=== PATIENT | male | born 1945 | race Caucasian/White ===

== ENCOUNTER → 2018-12-04 10:05 | Outpatient (CLI) | payer MEDICARE, OTHER, SELFPAY ==
[2018-12-04 10:57] LABS: BUN Creatinine Ratio 13.6 (6-22); Blood Urea Nitrogen 15 mg/dL (9-20); Calcium 9.5 mg/dL (8.4-10.2); Carbon Dioxide 30 mmol/L (22-32); Chloride 99 mmol/L (98-107); Estimated Glomerular Filt Rate > 60.0 mL/min (>60); Glucose 93 mg/dL (80-110); HEMOLYSIS < 15 (0-50); Potassium 4.4 mmol/L (3.4-5.1); Sodium 137 mmol/L (137-145)
[2018-12-04 13:13] LABS: Vitamin D 25 Hydroxy (D3) 74.4 ng/mL (30.0-100.0)
== END ==
PROVIDERS: PCP Student in an Organized Health Care Education/Training Program; Visit Provider Student in an Organized Health Care Education/Training Program
DX: I10 Essential (primary) hypertension (principal); E55.9 Vitamin D deficiency, unspecified
CPT/HCPCS: 36415; 80048; 82306

== ENCOUNTER → 2020-02-13 07:07 | Outpatient (CLI) | payer MEDICARE, OTHER, SELFPAY ==
[2020-02-13 09:53] LABS: Prostate Specific Antigen 0.121 ng/mL (0.10-4.00)
== END ==
PROVIDERS: PCP Student in an Organized Health Care Education/Training Program; Referring Provider Student in an Organized Health Care Education/Training Program; Visit Provider Urology
DX: N40.0 Benign prostatic hyperplasia without lower urinary tract symptoms (principal)
CPT/HCPCS: 36415; 84153

== ENCOUNTER → 2020-02-25 13:08 | Outpatient (CLI) | payer MEDICARE, OTHER, SELFPAY ==
[2020-02-25 14:14] LABS: BUN Creatinine Ratio 16.2 (6-22); Blood Urea Nitrogen 17 mg/dL (9-20); Calcium 9.7 mg/dL (8.4-10.2); Carbon Dioxide 27 mmol/L (22-32); Chloride 99 mmol/L (98-107); Estimated Glomerular Filt Rate > 60.0 mL/min (>60); Glucose 124 mg/dL (80-110); HEMOLYSIS < 15 (0-50); Potassium 4.3 mmol/L (3.4-5.1); Sodium 134 mmol/L (137-145)
== END ==
PROVIDERS: PCP Student in an Organized Health Care Education/Training Program; Referring Provider Student in an Organized Health Care Education/Training Program; Visit Provider Student in an Organized Health Care Education/Training Program
DX: I10 Essential (primary) hypertension (principal)
CPT/HCPCS: 36415; 80048

== ENCOUNTER → 2021-01-27 06:37 | Outpatient (CLI) | payer MEDICARE, OTHER, SELFPAY ==
--- NOTE | 2021-01-27 06:38 | DI.CT.S_ITS ---
PROCEDURE: CT PEL WO CON INDICATIONS: Pelvic mass TECHNIQUE: Non-contrast, 5 mm thick sections acquired from the iliac crests to the symphysis. 5 mm coronal and sagittal reformats were then performed. For radiation dose reduction, the following was used: automated exposure control, adjustment of mA and/or kV according to patient size. COMPARISON: [facility], CT, KIDNEY/ URETER/BLADDER, 09/04/2013, 14:28. [facility], CR, XR ABDOMEN 1 VIEW, 12/13/2018, 9:36. [facility], CR, XR ABDOMEN 1 VIEW, 04/02/2020, 9:24. FINDINGS: Image quality: Excellent. Peritoneum and bowel: Bowel loops demonstrate normal wall thickness and caliber. There is a large amount of stool in colon. No free fluid or air. Genitourinary: There is a 5 x 12 mm stone in the inferior pole of the left kidney. Kidneys are partially visualized. No hydronephrosis. Bladder wall appears mildly thickened concentrically. Enlarged prostate. Nodes and vessels: No iliac, pelvic, or inguinal adenopathy by size criteria. Iliac vessels demonstrate normal size. Bones: No suspicious bony lesions. Pelvic ring and hip joints appear intact. Miscellaneous: Enlargement of the right inguinal ring with an elliptical shaped fluid collection measuring 2.4 x 2.8 x 8.0 cm suggesting a hydrocele. No inguinal adenopathy. Mild focal bulge in the area of interest deep to the skin marker. IMPRESSION: 1. Mild focal bulge in the area of interest deep to the skin marker. 2. Enlargement of the right inguinal ring with an elliptical shaped fluid collection measuring 2.4 x 2.8 x 8.0 cm, probably related to right scrotal hydrocele. Recommend a scrotal ultrasound for further evaluation. 3. A 5 x 12 mm nonobstructive left kidney stone. 4. Enlarged prostate. Bladder wall appears mild concentrically thickened, suggesting mild bladder outlet obstruction. Dictated by: Matilde Stephens M.D. on 01/27/2021 at 10:18 Approved by: Matilde Stephens M.D. on 01/27/2021 at 12:36
== END ==
PROVIDERS: PCP Student in an Organized Health Care Education/Training Program; Referring Provider Student in an Organized Health Care Education/Training Program; Visit Provider Student in an Organized Health Care Education/Training Program
DX: R19.00 Intra-abdominal and pelvic swelling, mass and lump, unspecified site (principal); N20.0 Calculus of kidney; N40.0 Benign prostatic hyperplasia without lower urinary tract symptoms
CPT/HCPCS: 72192

== ENCOUNTER → 2021-01-31 07:08 | Outpatient (CLI) | payer MEDICARE, OTHER, SELFPAY ==
--- NOTE | 2021-01-31 07:09 | DI.US.S_ITS ---
PROCEDURE: US SCROTUM INDICATIONS: FLUID WITHIN INGUINAL CANAL TECHNIQUE: Real-time scanning was performed of the scrotum and testicles, with image documentation. Color and pulse Doppler interrogation was performed of both testicles. COMPARISON: [facility], CT, CT PEL WO CON, 01/27/2021, 7:03. FINDINGS: Right: Testicle is normal in size at 4.2 x 2.5 x 1.8 cm, and homogenous in echotexture. Epididymis is normal in overall size and morphology. No hydrocele or varicoceles. Overlying scrotal skin is normal in thickness. Left: Testicle is normal in size at 4.0 x 2.4 x 1.8 cm, and homogeneous in echotexture. Epididymis is normal in overall size and morphology. No hydrocele or varicoceles. Overlying scrotal skin is normal in thickness. Doppler: Color and pulse Doppler demonstrate normal and symmetric arterial flow in both testicles. Fluid noted in the right groin compatible with patent processus vaginalis. IMPRESSION: 1. Testicle sonographically normal. 2. Patent right processus vaginalis. Dictated by: Adri Tripp MD, PhD on 01/31/2021 at 16:28 Approved by: Adri Tripp MD, PhD on 01/31/2021 at 16:35
[2021-01-31 08:23] LABS: BUN Creatinine Ratio 14.7 (6-22); Blood Urea Nitrogen 15 mg/dL (9-20); Calcium 9.4 mg/dL (8.4-10.2); Carbon Dioxide 29 mmol/L (22-32); Chloride 100 mmol/L (98-107); Estimated Glomerular Filt Rate > 60.0 mL/min (>60); Glucose 102 mg/dL (80-110); HEMOLYSIS < 15 (0-50); Potassium 5.2 mmol/L (3.4-5.1); Sodium 135 mmol/L (137-145)
== END ==
PROVIDERS: PCP Student in an Organized Health Care Education/Training Program; Referring Provider Student in an Organized Health Care Education/Training Program; Visit Provider Student in an Organized Health Care Education/Training Program
DX: N43.3 Hydrocele, unspecified (principal); I10 Essential (primary) hypertension
CPT/HCPCS: 36415; 76870; 80048

== ENCOUNTER → 2021-05-06 09:35 | Outpatient (CLI) | payer MEDICARE, OTHER, SELFPAY ==
[2021-05-06 11:02] LABS: COVID19 -Nasal RAPID Negative (Negative)
== END ==
PROVIDERS: PCP Student in an Organized Health Care Education/Training Program; Visit Provider Surgery
DX: Z01.812 Encounter for preprocedural laboratory examination (principal); Z20.822 Contact with and (suspected) exposure to COVID-19
CPT/HCPCS: 87635; C9803

== ENCOUNTER 2021-05-09 07:22 | Day surgery (SDC) | payer MEDICARE, OTHER, SELFPAY ==
[2021-05-09] VITALS (7 sets, daily range): BP systolic 93–158; BP diastolic 51–79; PULSE 49–76; RESP 8–16; TEMP 36.2–36.7; O2SAT 96–99; BMI 45.6
[2021-05-09] MEDS: LACTATED RINGERS 1,000 ML 42 ML IV (08:02)
--- NOTE | 2021-05-09 08:28 | PM.HP.1 ---
History of Present Illness History of Present Illness Date Patient Seen: 05/09/21 Time Patient Seen: 08:28 Chief complaint: SDC Narrative: The patient presents for colorectal sreening. Previous colonoscopy 2009. No personal or family history of colon cancer. On further history denies any recent gastrointestinal symptoms. No nausea, vomiting, abdominal pain, loss of appetite, unexplained weight loss, change in bowel habits, diarrhea, constipation, melena, hematochezia, or bright red blood per rectum. Patient History Medical History Hyperlipidemia Hypertension Hypothyroidism Surgical History History of cystoscopy (10/10/13) Family & Social History Family History Father Myocardial infarction Mother Stroke Social History: household members spouse Tobacco & Substance use: Smoking Status Never smoker alcohol intake never Substance Use Type does not use Meds Home Medications and Allergies Home Medications Medication Instructions Recorded Confirmed Type tamsulosin 0.4 mg capsule (Flomax) 0.4 mg PO QDAY #90 cap 05/29/17 03/28/21 Rx finasteride 5 mg tablet 5 mg PO DAILY 12/04/18 05/09/21 History lisinopril 20 mg tablet See Rx Instructions .ROUTE 02/02/21 05/09/21 Rx .COMPLEX #90 tab atorvastatin 10 mg tablet (Lipitor) 10 mg PO Q OTHER DAY #45 tab 03/25/21 05/09/21 Rx sodium,potassium,mag sulfates 17.5 See Rx Instructions PO .COMPLEX 03/29/21 05/09/21 Rx gram-3.13 gram-1.6 gram oral soln #354 ml (Suprep Bowel Prep Kit) Allergies Allergy/AdvReac Type Severity Reaction Status Date / Time diclofenac [DICLOFENAC] Allergy Intermediate SWELLING. Verified 05/09/21 07:44 VOLTAREN GEL CAUSED SEVERE IRRITATION cod liver oil [COD LIVER OIL] Allergy Unknown HIVES Verified 05/09/21 07:44 (PATIENT WAS A CHILD AT THE TIME) Sulfa (Sulfonamide Allergy Unknown FAMILY Verified 05/09/21 07:44 Antibiotics) HISTORY [SULFA (SULFONAMIDE ANTIBIOTICS)] Review of Systems Review of Systems ROS: Yes All systems reviewed with the patient and are negative except as otherwise documented Exam Vital Signs (past 8 hours): - 05/09/21 07:48 Temperature 97.5 F L Pulse Rate 76 Respiratory Rate 16 Blood Pressure 158/79 H Pulse Oximetry 97 Oxygen Delivery Method Room Air Narrative Exam Narrative: Constitutional-he is oriented to person, place and time. No apparent distress Cardiovascular- regular rate, no peripheral edema Pulmonary-unlabored respiratory effort, no audible wheezing Abdominal-soft, non-tender, non-distended Musculoskeletal-no cyanosis or clubbing Neurological-nonfocal, normal strength throughout, normal gait. Skin-warm and dry Assessment & Plan Assessment & Plan narrative: The patient requires colorectal screening and colonoscopy is recommended. Technical details were discussed. Risks, benefits, alternatives explained. Risks including but not limited to myocardial infarction, aspiration, bleeding, pain, missed lesion, incomplete examination, need for further radiographic studies, colonic perforation, and need for major abdominal surgery were discussed. All questions were answered to their satisfaction, and they are in agreement with this plan.
[2021-05-09] MEDS: MIDAZOLAM 5 MG/5 ML VIAL IV (08:33)
[2021-05-09] MEDS: fentaNYL 250 MCG/5 ML INJ IV (08:33)
--- NOTE | 2021-05-09 09:01 | PM.OP.ENDO ---
Operative Date/Time/Diagnoses Date of procedure: 05/09/21 Time of procedure: 09:01 Pre-op diagnosis: screening Post-op diagnosis: same Procedure & Clinicians Study performed: colonoscopy Same procedure as scheduled: Yes Indications: screening Surgeon: Edison Márquez Procedure Notes Procedure in detail: Medications: Conscious sedation using 4mg IV midazolam and 100mcg IV of fentanyl The history and physical was performed/updated and the patient is ASA class is 2. The procedure was discussed in detail with the patient. Potential risks complications including infection, bleeding, missed diagnosis, perforation, need for surgery, and were explained. Their questions were answered and informed consent was obtained. Patient was brought to the procedure room and placed standard monitoring equipment. The patient's vital signs were monitored continuously throughout the entire procedure. Prior to starting time-out was performed. The patient was placed in the left lateral recumbent position. Procedural sedation was administered. Examination began with a thorough inspection of the perianal area there was no evidence of fissures, fistulae, external hemorrhoids or cutaneous malignancy. The colonoscopy scope was then placed into the anal canal and was advanced to the cecum, which was identified by the ileocecal valve, the appendiceal orifice and the confluence of the taenia. The scope was then slowly withdrawn examining colon thoroughly in all directions, irrigating it of any residual stool. FINDINGS 1. No masses or polyps 2. Sigmoid diverticulosis The patient tolerated the procedure well. They will be discharged once criteria are met. The prep was of good/excellent quality. The withdrawl time was 6 minutes. The sedation time was 26 minutes. Specimen(s): none sent Complications: none Impression: Normal colonoscopy Post-procedure Plan for aftercare: No need for further colonoscopy Disposition: same day surgery
== END 2021-05-09 09:52 | disposition home or self-care (01) ==
PROVIDERS: PCP Student in an Organized Health Care Education/Training Program; Referring Provider Surgery; Visit Provider Surgery
PROC: 0DJD8ZZ Inspection of Lower Intestinal Tract, Via Natural or Artificial Opening Endoscopic (ICD-10-PCS; CPT 45378; principal; 2021-05-09 08:30)
DX: Z12.11 Encounter for screening for malignant neoplasm of colon (principal); E78.5 Hyperlipidemia, unspecified; I10 Essential (primary) hypertension; E03.9 Hypothyroidism, unspecified; K57.30 Diverticulosis of large intestine without perforation or abscess without bleeding
CPT/HCPCS: G0121; 99152; J2250; J3010

== ENCOUNTER → 2022-03-09 10:47 | Outpatient (CLI) | payer MEDICARE, OTHER, SELFPAY ==
[2022-03-09 11:52] LABS: Alanine Aminotransferase 22 IU/L (<50); Albumin 4.5 g/dL (3.5-5.0); Albumin Globulin Ratio 1.8 (1.0-2.8); Alkaline Phosphatase 62 U/L (38-126); Aspartate Aminotransferase 33 IU/L (17-59); BUN Creatinine Ratio 16.4 (6-22); Bilirubin Total 1.3 mg/dL (0.2-1.3); Blood Urea Nitrogen 18 mg/dL (9-20); Calcium 9.1 mg/dL (8.4-10.2); Carbon Dioxide 29 mmol/L (22-32); Chloride 100 mmol/L (98-107); Cholesterol 139 mg/dL (140-199); Estimated Glomerular Filt Rate > 60 mL/min (>60); Globulin 2.5 g/dL (1.7-4.1); Glucose 94 mg/dL (80-110); HDL Cholesterol 67 mg/dL (40-60); HEMOLYSIS < 15 (0-50); LDL Cholesterol Calculated 60 mg/dL (<100); Potassium 4.8 mmol/L (3.4-5.1); Sodium 133 mmol/L (137-145); Triglycerides 59 mg/dL (35-150)
[2022-03-09 12:11] LABS: Prostate Specific Antigen 0.222 ng/mL (0.10-4.00)
== END ==
PROVIDERS: Urology; PCP Student in an Organized Health Care Education/Training Program; Referring Provider Student in an Organized Health Care Education/Training Program; Visit Provider Student in an Organized Health Care Education/Training Program
DX: E78.00 Pure hypercholesterolemia, unspecified (principal); Z12.5 Encounter for screening for malignant neoplasm of prostate; I10 Essential (primary) hypertension
CPT/HCPCS: 36415; 80053; 80061; 84153; G0103

== ENCOUNTER → 2022-05-10 06:56 | Outpatient (CLI) | payer MEDICARE, OTHER, SELFPAY ==
--- NOTE | 2022-05-10 | DI.RAD.S_ITS ---
PROCEDURE: XR ABDOMEN 1V INDICATIONS: Calculus of kidney TECHNIQUE: One view of the abdomen acquired. COMPARISON: [facility], CR, XR ABDOMEN 1 VIEW, 04/02/2020, 9:24. FINDINGS: Surgical changes and devices: None. Bowel: Scattered small bowel and colonic gas. No dilated loops of bowel seen. Prominent stool in the colon. Soft tissues: Left kidney stone or stones measuring 1.1 cm projecting at the inferior pole. Left kidney superior pole calculus measuring at 0.3 cm. The stones are unchanged since 2019. Phlebolith in the right pelvis is also unchanged. No suspicious abdominal calcifications. Visualized solid organ contours appear normal in size. Bones: No suspicious bony lesions. IMPRESSION: Stable nonobstructing left kidney stones. Prominent stool in the colon. If clinically indicated consider CT KUB for further evaluation. Dictated by: Surinder Rivera M.D. on 05/10/2022 at 9:40 Approved by: Surinder Rivera M.D. on 05/10/2022 at 9:42
== END ==
PROVIDERS: PCP Student in an Organized Health Care Education/Training Program; Referring Provider Urology; Visit Provider Urology
DX: N20.0 Calculus of kidney (principal)
CPT/HCPCS: 74018

== ENCOUNTER → 2023-02-15 06:56 | Outpatient (CLI) | payer MEDICARE, OTHER, SELFPAY ==
--- NOTE | 2023-02-15 06:58 | DI.RAD.S_ITS ---
PROCEDURE: XR KUB INDICATIONS: BPH with history of kidney stones TECHNIQUE: One view of the abdomen acquired. COMPARISON: [facility], , KUB XRAY (1 VIEW ABDOMEN), 09/20/2017, 8:38. FINDINGS: Surgical changes and devices: None. Bowel: Bowel gas pattern is normal. Soft tissues: No change in left renal calcifications measuring 8 mm and 4 mm. Visualized solid organ contours appear normal in size. Bones: No suspicious bony lesions. IMPRESSION: No change in left renal calcifications. Dictated by: Fermin Ventura M.D. on 02/15/2023 at 10:36 Approved by: Fermin Ventura M.D. on 02/15/2023 at 10:37
== END ==
PROVIDERS: Referring Provider Specialist; Visit Provider Specialist
DX: N40.1 Benign prostatic hyperplasia with lower urinary tract symptoms (principal); N20.0 Calculus of kidney
CPT/HCPCS: 36415; 74018; 84153

== ENCOUNTER → 2023-04-16 06:49 | Outpatient (CLI) | payer MEDICARE, OTHER, SELFPAY ==
--- NOTE | 2023-04-16 | DI.US.S_ITS ---
LIMITED ULTRASOUND OF LEFT BREAST AND AXILLA: 04/16/2023 CLINICAL: Palpable left breast lump. No prior exams were available for comparison. Color flow ultrasound of the left breast axilla was performed on the areas of interest. Narayan scale images of the real-time examination were reviewed. There is a 7.4 cm x 5.1 cm x 0.9 cm isoechoic mass in the left axillary tail which corresponds as palpated. No increased vascularity. No left axillary adenopathy. 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 Please note, a lipoma cannot be differentiated from the very rare liposarcoma by ultrasound imaging. Please correlate with clinical exam findings and history of rapid interval growth. Clinical follow-up recommended. Electronically Signed By: Mariaa archibald/:04/16/2023 12:37:30 letter sent: Clinical Evaluation Ultrasound BI-RADS: 2 Benign
== END ==
PROVIDERS: PCP Pediatrics; Referring Provider Pediatrics; Visit Provider Pediatrics
DX: N63.32 Unspecified lump in axillary tail of the left breast (principal)
CPT/HCPCS: 76642

== ENCOUNTER → 2023-09-20 09:52 | Outpatient (CLI) | payer MEDICARE, OTHER, SELFPAY ==
[2023-09-20 10:22] LABS: Hemoglobin 14.4 g/dL (13.5-17.5); Mean Corpuscular HGB Conc 34.2 % (30-36); Mean Corpuscular Hemoglobin 33.6 PG (26-34); Platelet Count 170 X10^3/uL (150-400); Red Blood Cell Count 4.29 X10^6/uL (4.5-5.9); Red Cell Distribution Width 13.5 % (11.6-14.8); White Blood Cell Count 4.3 X10^3/uL (4.5-11.0)
[2023-09-20 10:58] LABS: Alanine Aminotransferase 23 IU/L (<50); Albumin 4.4 g/dL (3.5-5.0); Albumin Globulin Ratio 1.5 (1.0-2.8); Alkaline Phosphatase 65 U/L (38-126); Aspartate Aminotransferase 33 IU/L (17-59); BUN Creatinine Ratio 17.3 (6-22); Bilirubin Total 1.5 mg/dL (0.2-1.3); Blood Urea Nitrogen 19 mg/dL (9-20); Calcium 9.7 mg/dL (8.4-10.2); Carbon Dioxide 29 mmol/L (22-32); Chloride 94 mmol/L (98-107); Cholesterol 151 mg/dL (140-199); Estimated Glomerular Filt Rate > 60 mL/min (>60); Globulin 2.9 g/dL (1.7-4.1); Glucose 100 mg/dL (80-110); HDL Cholesterol 82 mg/dL (40-60); HEMOLYSIS < 15 (0-50); LDL Cholesterol Calculated 56 mg/dL (<100); Potassium 4.2 mmol/L (3.4-5.1); Sodium 132 mmol/L (137-145); Total Protein 7.3 g/dL (6.3-8.2); Triglycerides 65 mg/dL (35-150)
[2023-09-20 11:41] LABS: TSH w/ Reflex to FT4 7.94 uIU/mL (0.47-4.68)
[2023-09-20 12:20] LABS: Free T4, Direct Thyroxine 0.67 ng/dL (0.78-2.19)
== END ==
LOC: LAB 09:54
PROVIDERS: PCP Internal Medicine; Referring Provider Internal Medicine; Visit Provider Internal Medicine
DX: E78.2 Mixed hyperlipidemia (principal); I10 Essential (primary) hypertension
CPT/HCPCS: 36415; 80053; 80061; 84439; 84443; 85027

== ENCOUNTER → 2024-03-06 08:27 | Outpatient (CLI) | payer MEDICARE, OTHER, SELFPAY ==
--- NOTE | 2024-03-06 08:32 | DI.RAD.S_ITS ---
PROCEDURE: XR KUB INDICATIONS: Kidney Stones TECHNIQUE: One view of the abdomen acquired. COMPARISON: [facility], CR, XR KUB, 02/15/2023, 7:19. [facility], CR, KUB XRAY (1 VIEW ABDOMEN), 09/20/2017, 8:38. FINDINGS: Surgical changes and devices: None. Bowel: Bowel gas pattern is normal. Soft tissues: No suspicious abdominal calcifications. Visualized solid organ contours appear normal in size. 1.2 x 0.4 cm stone projecting over the inferior calyx of the left kidney. Bones: No suspicious bony lesions. IMPRESSION: Stable 1.2 x 0.4 cm stone projecting over the inferior calyx of the left kidney. Dictated by: Emmett Friedman M.D. on 03/06/2024 at 10:15 Approved by: Emmett Friedman M.D. on 03/06/2024 at 10:16
== END ==
PROVIDERS: PCP Internal Medicine; Referring Provider Specialist; Visit Provider Specialist
DX: N40.1 Benign prostatic hyperplasia with lower urinary tract symptoms (principal); N13.8 Other obstructive and reflux uropathy; N20.0 Calculus of kidney
CPT/HCPCS: 51798; 74018; 81002; 99214

== ENCOUNTER → 2024-09-15 14:15 | Outpatient (CLI) | payer MEDICARE, OTHER, SELFPAY ==
[2024-09-15 15:42] LABS: Aspartate Aminotransferase 37 IU/L (17-59); BUN Creatinine Ratio 16.4 (6-22); Blood Urea Nitrogen 19 mg/dL (9-20); Calcium 9.6 mg/dL (8.4-10.2); Carbon Dioxide 30 mmol/L (22-32); Chloride 100 mmol/L (98-107); Cholesterol 149 mg/dL (140-199); Estimated Glomerular Filt Rate > 60 mL/min (>60); Glucose 91 mg/dL (80-110); HDL Cholesterol 69 mg/dL (40-60); HEMOLYSIS < 15 (0-50); LDL Cholesterol Calculated 44 mg/dL (<100); Potassium 4.3 mmol/L (3.4-5.1); Sodium 136 mmol/L (137-145); Triglycerides 179 mg/dL (35-150)
[2024-09-15 16:09] LABS: Prostate Specific Antigen 0.235 ng/mL (0.10-4.00)
[2024-09-15 16:12] LABS: TSH w/ Reflex to FT4 6.45 uIU/mL (0.47-4.68)
== END ==
PROVIDERS: PCP Internal Medicine; Referring Provider Internal Medicine; Visit Provider Internal Medicine
DX: E78.2 Mixed hyperlipidemia (principal); N40.1 Benign prostatic hyperplasia with lower urinary tract symptoms; I10 Essential (primary) hypertension; N13.8 Other obstructive and reflux uropathy
CPT/HCPCS: 36415; 80048; 80061; 84153; 84439; 84443; 84450